=== PATIENT | female | born 1955 | race Caucasian/White ===

== ENCOUNTER 2020-07-06 17:28 | Emergency (ER) | payer MEDICARE ==
[~2020-07-06] VITALS: Ht 165.1 cm; Wt 93.1 kg
[2020-07-06 17:31] VITALS: BP 173/83
== END 2020-07-06 19:09 | disposition left against medical advice (07) ==
LOC: ER 17:28
DX: R51 Headache (principal); R09.89 Other specified symptoms and signs involving the circulatory and respiratory systems; R53.83 Other fatigue; R25.2 Cramp and spasm; R25.3 Fasciculation
CPT/HCPCS: 99281